=== PATIENT | female | born 1950 | race Caucasian/White ===

== ENCOUNTER → 2020-12-23 | Outpatient (CLI) | payer MEDICARE | LOC: MAMO 10-26 11:30 | DX: Z12.31 Encounter for screening mammogram for malignant neoplasm of breast (principal) | CPT/HCPCS: 77063; 77067 ==

== ENCOUNTER → 2021-10-27 | Outpatient (CLI) | payer MEDICARE | LOC: EXRD 11:42 | DX: J20.9 Acute bronchitis, unspecified (principal) | CPT/HCPCS: 71046 ==